=== PATIENT | male | born 1995 | race Caucasian/White ===

== ENCOUNTER 2020-05-07 09:24 | Observation (INO) ==
[2020-05-07] MEDS ORDERED: BuPROPion SR (12 HR) 150 MG TABLET PO SCH (09:45)
[2020-05-07] MEDS: risperiDONE 1 MG TABLET PO SCH ×2 (10:50→20:25)
[2020-05-07] MEDS ORDERED: BuPROPion SR (12 HR) 150 MG TABLET PO ONE (14:15)
[2020-05-07] MEDS: OLANZapine 10 MG TAB.RAPDIS PO SCH (20:24)
[2020-05-07] MEDS: Divalproex (12 HR) 500 MG TABLET PO SCH (20:24)
[2020-05-08] MEDS: BuPROPion XL (24 HR) 150 MG TABLET PO SCH (08:58)
[2020-05-08] MEDS: risperiDONE 1 MG TABLET PO SCH ×2 (08:58→20:16)
[2020-05-08] MEDS: Divalproex (12 HR) 500 MG TABLET PO SCH (20:15)
[2020-05-08] MEDS: OLANZapine 10 MG TAB.RAPDIS PO SCH (20:16)
[2020-05-09] MEDS ORDERED: traZODone 50 MG TABLET PO PRN (00:41)
[2020-05-09] MEDS ORDERED: hydrOXYzine pamoate 25 MG CAPSULE PO PRN ×2 (00:42→11:15)
[2020-05-09] MEDS: BuPROPion XL (24 HR) 150 MG TABLET PO SCH (07:51)
[2020-05-09] MEDS: risperiDONE 1 MG TABLET PO SCH ×2 (07:51→21:31)
[2020-05-09] MEDS ORDERED: traZODone 50 MG TABLET PO SCH (21:00)
[2020-05-09] MEDS: Divalproex (12 HR) 500 MG TABLET PO SCH (21:30)
[2020-05-09] MEDS: OLANZapine 10 MG TAB.RAPDIS PO SCH (21:31)
[2020-05-10] MEDS: risperiDONE 1 MG TABLET PO SCH (08:11)
[2020-05-10] MEDS: BuPROPion XL (24 HR) 150 MG TABLET PO SCH (08:11)
[2020-05-10 08:48] VITALS: BP 119/88
== END 2020-05-10 11:59 | disposition home or self-care (01) ==
LOC: EMEROOARM 09:24 → 3BNU 09:24
PROVIDERS: ADMIT Psychiatry & Neurology Psychiatry; ATTEND Psychiatry & Neurology Psychiatry